=== PATIENT | male | born 1985 | race African-American/Black ===

== ENCOUNTER 2018-08-25 22:52 | Emergency (ER) | payer MEDICAID, OTHER ==
[~2018-08-25] VITALS: Ht 185.4 cm; Wt 79.5 kg
[2018-08-25 23:00] VITALS: BP 123/85
[2018-08-25] MEDS ORDERED: ZOLP10TA5 PO (23:26)
[2018-08-25] MEDS ORDERED: QUET400T PO (23:26)
--- NOTE | 2018-08-25 23:41 | NUR ---
PT HERE FOR PRESCRIPTION REFILL
== END 2018-08-25 23:43 | disposition home or self-care (01) ==
LOC: ER 22:53
DX: F32.9 Major depressive disorder, single episode, unspecified (principal); G47.00 Insomnia, unspecified; F41.9 Anxiety disorder, unspecified; Z76.0 Encounter for issue of repeat prescription
CPT/HCPCS: 99283

== ENCOUNTER 2018-11-26 19:28 | Emergency (ER) | payer MEDICAID, OTHER ==
[~2018-11-26] VITALS: Ht 185.4 cm; Wt 77.0 kg
[~2018-11-26 19:28] MED LIST: QUET400T PO
[2018-11-26 20:08] VITALS: BP 112/79
[2018-11-26] MEDS ORDERED: ZOLP10TA5 PO ×2 (20:25→20:26)
[2018-11-26] MEDS ORDERED: QUET400T5 PO (20:25)
[2018-11-26] MEDS ORDERED: QUET400T12 PO (20:26)
== END 2018-11-26 20:36 | disposition home or self-care (01) ==
LOC: ER 19:29
DX: F41.9 Anxiety disorder, unspecified (principal); F32.9 Major depressive disorder, single episode, unspecified; G47.00 Insomnia, unspecified; Z76.0 Encounter for issue of repeat prescription; Z60.2 Problems related to living alone; Z79.899 Other long term (current) drug therapy
CPT/HCPCS: 99283

== ENCOUNTER 2019-03-15 13:43 | Emergency (ER) | payer MEDICAID ==
[~2019-03-15] VITALS: Ht 185.4 cm; Wt 78.0 kg
[~2019-03-15 13:43] MED LIST changes: +QUET400T12 PO; +QUET400T5 PO
[2019-03-15 14:06] VITALS: BP 126/83
[2019-03-15] MEDS ORDERED: QUET400T5 PO (14:40)
== END 2019-03-15 14:50 | disposition home or self-care (01) ==
LOC: ER 13:43
DX: G47.00 Insomnia, unspecified (principal); Z76.0 Encounter for issue of repeat prescription; F41.9 Anxiety disorder, unspecified; F32.9 Major depressive disorder, single episode, unspecified; Z79.899 Other long term (current) drug therapy; Z60.2 Problems related to living alone
CPT/HCPCS: 99283

== ENCOUNTER 2019-08-08 13:28 | Emergency (ER) | payer MEDICAID ==
[~2019-08-08] VITALS: Ht 185.4 cm; Wt 80.8 kg
[2019-08-08 13:43] VITALS: BP 134/99
[2019-08-08] MEDS ORDERED: HYDROcodone/acetaminophen 5mg/325mg tablet PO ONE (15:00)
[2019-08-08] MEDS ORDERED: ondansetron 4mg rapidly disintigrating tab PO ONE (15:00)
[2019-08-08] MEDS ORDERED: IBUP-1984 PO (15:01)
[2019-08-08] MEDS ORDERED: PENI500T2 PO (15:01)
== END 2019-08-08 15:30 | disposition home or self-care (01) ==
LOC: ER 13:28
DX: K08.89 Other specified disorders of teeth and supporting structures (principal); F41.9 Anxiety disorder, unspecified; F32.9 Major depressive disorder, single episode, unspecified; Z60.2 Problems related to living alone; Z79.899 Other long term (current) drug therapy
CPT/HCPCS: 99283

== ENCOUNTER 2019-08-09 09:41 | Emergency (ER) | payer MEDICAID ==
[~2019-08-09 09:41] MED LIST changes: +IBUP-1984 PO; +PENI500T2 PO
--- NOTE | 2019-08-09 09:54 | NUR ---
Patient called to triage, not in lobby. Patient told registration that he was feeling better and was leaving.
== END 2019-08-09 09:56 | disposition left against medical advice (07) ==
LOC: ER 09:41
DX: K08.89 Other specified disorders of teeth and supporting structures (principal); Z53.21 Procedure and treatment not carried out due to patient leaving prior to being seen by health care provider

== ENCOUNTER 2022-08-17 10:12 | Emergency (ER) | payer MEDICAID ==
[~2022-08-17 10:12] MED LIST changes: -IBUP-1984 PO; -PENI500T2 PO; -QUET400T12 PO; +QUET400T13 PO
== END 2022-08-17 11:41 | disposition left against medical advice (07) ==
LOC: ER 10:12
DX: M54.50 Low back pain, unspecified (principal); R10.9 Unspecified abdominal pain; Z53.21 Procedure and treatment not carried out due to patient leaving prior to being seen by health care provider